=== PATIENT | female | born 1990 | race Caucasian/White ===

== ENCOUNTER 2016-10-09 13:50 | Outpatient (CLI) | payer BC ==
--- NOTE | 2016-10-09 15:04 | DIAGNOSTIC IMAGING REPORT ---
PROCEDURE: US COMPLETE PELVIC W/TRANSVAG INDICATION: VAG BLEEDING TECHNIQUE: Transabdominal and endovaginal hogue scale and color Doppler sonographic images of the female pelvis were obtained. COMPARISON: None. FINDINGS: TRANSABDOMINAL SCANS: Anteverted uterus. Normal kidneys. TRANSVAGINAL SCANS: The uterus measures 5.7 x 4.2 x 4.9 cm. Myometrium is unremarkable. IUD in satisfactory position. Endometrium measures 3.7 mm. Right ovary measures 3.1 x 3.4 x 2.3 cm with a 2.6 cm simple cyst. Left ovary measures 2.8 x 2 x 2.2 cm there is vascular flow to the ovaries. No adnexal mass or free fluid in the cul-de-sac. IMPRESSION: 1. IUD in satisfactory position 2. 2.6 cm simple right ovarian cyst.
== END 2016-10-09 23:00 ==
LOC: US SRH 13:50
DX: N93.9 Abnormal uterine and vaginal bleeding, unspecified (principal); N83.201 Unspecified ovarian cyst, right side; Z97.5 Presence of (intrauterine) contraceptive device